=== PATIENT | male | born 2000 | race Caucasian/White ===

== ENCOUNTER 2021-07-15 15:58 | Emergency (ER) | payer BC ==
--- NOTE | 2021-07-15 16:09 | EDM.PDOC ---
ED HPI GENERAL MEDICAL PROBLEM - General Stated Complaint: LEFT FINGER INJURED Time Seen by Provider: 07/15/21 16:30 Source of Information: Reports: Patient History Limitations: Reports: No Limitations - History of Present Illness INITIAL COMMENTS - FREE TEXT/NARRATIVE: This patient presents to the emergency department for evaluation of a laceration. He states he was cleaning a gross when he lacerated his finger with a knife. The injury is to his left third digit. He denies other injuries or concerns. Onset: Today, Sudden Review of Systems - Review of Systems Review Of Systems: Comprehensive ROS is negative, except as noted in HPI. ED EXAM, GENERAL - Physical Exam Exam: See Below Exam Limited By: No Limitations General Appearance: Alert, WD/WN, No Apparent Distress Eye Exam: Bilateral Eye: PERRL Nose: Normal Inspection Throat/Mouth: Normal Inspection Head: Atraumatic, Normocephalic Respiratory/Chest: No Respiratory Distress, No Accessory Muscle Use Cardiovascular: Regular Rate, Rhythm Extremities: Normal Inspection, Normal Range of Motion Neurological: Alert, Oriented Psychiatric: Normal Affect Skin Exam: Warm, Dry, Wound/Incision (2 cm laceration to left third digit between DIP and PIP.) ED TRAUMA PROCEDURES - Laceration/Wound Repair Left Lateral Digit - 3rd (Middle) Appearance: Subcutaneous, Clean Distal NVT: Neuro & Vascular Intact, No Tendon Injury Anesthetic Type: Local Local Anesthesia - Lidocaine (Xylocaine): 1% Plain Local Anesthetic Volume: 5cc Skin Prep: Chlorhexidine (Hibiciens) Saline Irrigation (cc's): 250 Exploration/Debridement/Repair: Wound Explored, Minimal Debridement Closed With: Sutures Suture Size: 5-0 # of Sutures: 6 (5-0 Vicryl) Suture Type: Other (5-0 Vicryl) Course - Re-Assessments/Exams Free Text/Narrative Re-Assessment/Exam: 07/15/21 16:57 This patient presents to the emergency department with laceration to his finger. The wound was carefully evaluated and explored. The laceration was closed with 5-0 Vicryl in a simple interrupted pattern as noted above. There is no evidence of muscular, tendon, or bony damage with this laceration. There are no signs of a foreign body. Possible complications including infection and scarring were reviewed with the patient. A sterile dressing with bacitracin was applied following the repair. He is to follow-up with his primary care provider as needed for wound infection. Patient was stable at the time of discharge. Departure - Departure Time of Disposition: 17:00 Disposition: Home, Self-Care 01 Condition: Good Clinical Impression: Laceration - Discharge Information *PRESCRIPTION DRUG MONITORING PROGRAM REVIEWED*: Not Applicable *COPY OF PRESCRIPTION DRUG MONITORING REPORT IN PATIENT CHASE: Not Applicable Instructions: Laceration Care, Adult Referrals: PCP,None [Primary Care Provider] -
[2021-07-15] MEDS ORDERED: Lidocaine 1% 30 ML SDV INFILT ONE (16:45)
== END 2021-07-15 16:50 | disposition home or self-care (01) ==
LOC: LB.ED 15:58
DX: S61.213A Laceration without foreign body of left middle finger without damage to nail, initial encounter (principal); W26.0XXA Contact with knife, initial encounter
CPT/HCPCS: 12001; 99282-25